=== PATIENT | male | born 1950 | race Two or more races ===

== ENCOUNTER 2017-11-24 09:04 | Day surgery (SDC) | payer MEDICARE, MEDICAID ==
[2017-11-20 10:43] LABS: Basophils # (auto) 0 uL; Basophils % (auto) 0.7 % (0.0-2.0); Eosinophils # (auto) 0.3 uL; Eosinophils % (auto) 5.6 % (0.0-7.0); Hematocrit 45.7 % (41.0-53.0); Hemoglobin 14.8 g/dL (13.5-17.5); Lymphocytes # (auto) 1.6 uL; Lymphocytes % (auto) 30.3 % (10.0-50.0); Mean Corpuscular Hemoglobin 29.2 pg (28.0-32.0); Mean Corpuscular Hgb Conc. 32.5 g/dL (32.0-36.0); Mean Corpuscular Volume 89.9 fL (80.0-100.0); Monocytes # (auto) 0.5 uL; Monocytes % (auto) 8.9 % (0.0-12.0); Neutrophils # (auto) 2.8 uL; Neutrophils % (auto) 54.5 % (37.0-80.0); Nucleated Red Blood Cells % 0.1 %; Platelet Count (auto) 152 10^3/uL (140-450); Red Blood Cells 5.08 10^6/uL (4.5-5.90); White Blood Cell 5.2 10^3/uL (4.4-10.8)
[2017-11-20 10:52] LABS: INR 1.04 (0.9-1.15); Prothrombin Time 11.3 sec (9.37-12.3)
[~2017-11-24] VITALS: Ht 172.7 cm; Wt 70.3 kg
[~2017-11-24 09:04] MED LIST: ASPI81TA27 GT; CITA-77 GT; CLON1TAB3 GT; HYDR-4683 GT; LATA0.0015 EACHEYE; LEVE100S9 GT; METO25TA5 GT; PANT40TA2 GT; PRI50T GT; TIMO0.5S49 EACHEYE; TOPI25CA5 GT; TRAZ150T79 GT
[2017-11-24 11:10] VITALS: BP 129/77
[2017-11-24] MEDS ORDERED: fentaNYL CITRATE 100 MCG/2 ML VL ONE (11:57)
[2017-11-24] MEDS ORDERED: LIDOCAINE VISCOUS 2% 15ML UD ONE (11:57)
[2017-11-24] MEDS ORDERED: MIDAZOLAM HCL 5 MG/ML-1ML VIAL ONE (11:57)
[2017-11-24] MEDS ORDERED: diphenhdrAMINE HCL 50 MG/1 ML VL ONE (11:57)
== END 2017-11-24 11:20 | disposition home or self-care (01) ==
LOC: GI 09:04
PROVIDERS: ATTEND Internal Medicine Gastroenterology
DX: K29.50 Unspecified chronic gastritis without bleeding (principal); K29.80 Duodenitis without bleeding; E66.9 Obesity, unspecified; R56.9 Unspecified convulsions; E11.9 Type 2 diabetes mellitus without complications
CPT/HCPCS: 36415; 43239; 85025; 85610; J2250; J3010